=== PATIENT | male | born 1955 | race Hispanic/Latino ===

== ENCOUNTER 2019-04-28 16:40 | Inpatient (IN) | payer OTHER ==
[2019-04-28] MEDS ORDERED: NITRO-BID 2% TP ONE (16:42)
[2019-04-28] MEDS ORDERED: SUBLIMAZE IV ONE (16:43)
[2019-04-28] MEDS ORDERED: ZOFRAN IV ONE (16:43)
[2019-04-28] MEDS ORDERED: HEPARIN 10,000 UNITS/10 ML IV ONE (16:45)
[2019-04-28] MEDS ORDERED: CALAN ONE ×2 (16:50→20:46)
[2019-04-28] MEDS ORDERED: XYLOCAINE 2% INFILTRATI ONE ×2 (16:50→19:06)
[2019-04-28] MEDS ORDERED: HEPARIN/NS 5000 UNIT/500ML(CATH LAB) 1,000 ML IR ONE (16:50)
[2019-04-28] MEDS ORDERED: NITROGLYCERIN SYRINGE 3 ML ONE (16:51)
[2019-04-28] MEDS ORDERED: VERSED ONE (16:51)
[2019-04-28] MEDS ORDERED: SUBLIMAZE ONE (16:51)
[2019-04-28] MEDS ORDERED: NACL 0.9% 1000 ML 1,000 ML IV ONE ×2 (16:51)
[2019-04-28] MEDS ORDERED: HEPARIN 10,000 UNITS/10 ML ONE (16:52)
[2019-04-28] MEDS ORDERED: PLAVIX PO ONE (16:55)
--- NOTE | 2019-04-28 16:55 | Emergency Department Report ---
HPI - General Time Seen by Provider: 04/28/19 16:42 - HPI HPI: Room 22 The patient is 63-year-old male presenting with a chief complaint of chest pain. Per EMS just prior to arrival the patient was engaged in sexual intercourse when he developed substernal chest pain described as a burning in nature associated with shortness of breath nausea/vomiting and diaphoresis. EMS EKG was in to the ED prior to the patient's arrival and a code STEMI was called. EMS EKG transmitted to interventionalist prior to arrival. Patient gives his chest pain a score of 8/10 Location: Chest, see above Duration: [See above] Quality: Burning Severity: 8/10 Modifying factors: [see above] Context: [see above] Mode of transportation: [not driving] ED Past Medical Hx - Past Medical History Previous Medical History?: No - Surgical History Past Surgical History?: No - Family History Family history: no significant - Social History Smoking Status: Never Smoker Substance Use Type: None ED Review of Systems ROS: Stated complaint: STEMI Other details as noted in HPI Constitutional: diaphoresis Eyes: denies: eye pain ENT: denies: throat pain Respiratory: shortness of breath Cardiovascular: chest pain Endocrine: no symptoms reported Gastrointestinal: nausea Genitourinary: denies: dysuria Musculoskeletal: denies: back pain Neurological: denies: headache Physical Exam - Physical Exam Physical Exam: GENERAL: The patient is well-developed well-nourished male lying on stretcher appearing to be in moderate discomfort. [] HEENT: Normocephalic. Atraumatic. Extraocular motions are intact. Patient has moist mucous membranes. NECK: Supple. Trachea midline CHEST/LUNGS: Clear to auscultation. There is no respiratory distress noted. HEART/CARDIOVASCULAR: Regular. There is no tachycardia. There is no gallop rub or murmur. ABDOMEN: Abdomen is soft, nontender. Patient has normal bowel sounds. There is no abdominal distention. SKIN: There is no rash. There is no edema. There is diaphoresis. NEURO: The patient is awake, alert, and oriented. The patient is cooperative. The patient has normal speech MUSCULOSKELETAL: There is no evidence of acute injury. ED Course - Consultations Consultation #1: 04/28/19 16:35 EMS EKG transmitted to sports marketing internship (Dr Palomo) and a code STEMI called Consultation #2: 04/28/19 16:[address] Palomo- recommends giving Plavix 600 mg by mouth 04/28/19 16:58 Patient has already been transported to the assistant laboratory director. Transporting nurse instructed to inform The patient has not received Plavix 600 mg in ED Consultation #3: 04/28/19 16:59 Hospitalist notified (Dr Barroso) ED Medical Decision Making - EKG Data -: EKG Interpreted by Me EKG shows normal: sinus rhythm Rate: normal - EKG Data When compared to previous EKG there are: previous EKG unavailable Interpretation: acute IL (acute inferior IL) - Differential Diagnosis STEMI Critical care attestation.: If time is entered above; I have spent that time in minutes in the direct care of this critically ill patient, excluding procedure time. ED Disposition Clinical Impression: STEMI (ST elevation myocardial infarction), Chest pain Disposition: 09 OP ADMIT IP TO THIS HOSP Is pt being admited?: Yes Does the pt Need Aspirin: Yes Condition: Serious Instructions: Chest Pain (ED) Time of Disposition: 16:59 (hospitalist notified (Dr Barroso))
[2019-04-28 17:00] VITALS: BP 126/77
[2019-04-28] MEDS ORDERED: DILAUDID IV PRN (17:28)
[2019-04-28] MEDS ORDERED: ZOFRAN IV PRN (17:28)
[2019-04-28] MEDS ORDERED: SODIUM CHLORIDE FLUSH SYRINGE 10 ML IV PRN (17:28)
[2019-04-28] MEDS ORDERED: AMBIEN PO PRN (17:28)
[2019-04-28] MEDS ORDERED: PERCOCET 5/325 PO PRN (17:28)
[2019-04-28] MEDS: HEPARIN 10,000 UNITS/10 ML ONE ×2 (17:33→17:36)
[2019-04-28] MEDS ORDERED: PHENYLEPHRINE/NS Syringe 1,000 MCG/10 ML IV ONE (17:54)
[2019-04-28] MEDS ORDERED: ADRENALIN ONE (17:54)
[2019-04-28] MEDS ORDERED: ATROPINE 0.1% (CARDIAC) ONE ×2 (17:54)
[2019-04-28] MEDS ORDERED: XYLOCAINE CARDIAC IV ONE (17:54)
[2019-04-28] MEDS ORDERED: D5NS 1,000 ML IV SCH (18:00)
[2019-04-28] MEDS ORDERED: LOVENOX SUB-Q SCH (18:00)
[2019-04-28] MEDS ORDERED: ASPIRIN PO SCH (18:00)
[2019-04-28] MEDS: INTROPIN DRIP 800 MG/D5W 250 ML 800 MG/250 ML BAG IV ONE ×2 (18:05→18:10)
[2019-04-28] MEDS ORDERED: ZOFRAN ONE (18:07)
[2019-04-28] MEDS ORDERED: HEPARIN/ 0.45% NACL-25,000 UNIT/500 ML 25,000 UNIT/500 ML BAG ONE (18:09)
[2019-04-28 18:34] LABS: Basophils % (Auto) 0.5 % (0.0-1.8); Eosinophils # (Auto) 0.1 K/mm3 (0.0-0.4); Eosinophils % (Auto) 1.6 % (0.0-4.3); Hematocrit 41.5 % (35.5-45.6); Lymphocytes # (Auto) 1.8 K/mm3 (1.2-5.4); Lymphocytes % (Auto) 23.4 % (13.4-35.0); Mean Corpuscular HGB Conc 34 % (32-34); Mean Corpuscular Volume 95 fl (84-94); Monocytes # (Auto) 0.5 K/mm3 (0.0-0.8); Monocytes % (Auto) 6.4 % (0.0-7.3); Platelet Count 178 K/mm3 (140-440); Red Blood Count 4.38 M/mm3 (3.65-5.03); Red Cell Distribution Width 13.7 % (13.2-15.2)
[2019-04-28] MEDS ORDERED: LEVOPHED IV ONE (18:36)
[2019-04-28] MEDS ORDERED: NACL 0.9% 250ML 250 ML ONE (18:37)
[2019-04-28 18:51] LABS: INR 1.25 (0.87-1.13)
[2019-04-28 18:52] LABS: Creatine Kinase MB 32.6 ng/mL (0.0-4.0)
[2019-04-28] MEDS ORDERED: HEPARIN/NS 5000 UNIT/500ML(CATH LAB) 500 ML IR ONE ×2 (18:52→19:06)
[2019-04-28 18:53] LABS: Alanine Aminotransferase 38 units/L (7-56); Albumin 3.6 g/dL (3.9-5); BUN/Creatinine Ratio 14; Blood Urea Nitrogen 15 mg/dL (9-20); Calcium 7.8 mg/dL (8.4-10.2); Hemolysis Index 12
--- NOTE | 2019-04-28 18:57 | Event Note ---
Date: 04/28/191747 Called to supervisor cytogenetic laboratory for hemodynamic instability prior to insertion of IABP. Changed him from NC to 100% NRB; ventilation/oxygenation stable. 1811 Called to supervisor cytogenetic laboratory-[facility]. Pt with STEMI vomited, possible aspiration, on IABP. Pt was awake, alert, and oriented. Tool Room Supervisor requested we intubate the patient. 1827 Etomidate 20mg + Jayne 100mg DL x 1 DVC 8.0 OETT. +BBS and +ETCO2 Pt placed on vent Lucho Aguero, MILAD and I were present.
[2019-04-28] MEDS ORDERED: LEVAQUIN 500MG/100ML 500 MG/100 ML BAG IV ONE (19:07)
[2019-04-28 19:11] LABS: Chol/HDL Ratio 3.72 %; HDL Cholesterol 33 mg/dL (40-59); LDL Cholesterol,Direct 92 mg/dL (50-130); Partial Thromboplastin Time > 240.0 Sec. (24.2-36.6)
[2019-04-28] MEDS ORDERED: NACL 0.9% 1000 ML 1,000 ML ONE (19:18)
[2019-04-28] MEDS ORDERED: AMIDATE IV ONE (19:20)
[2019-04-28] MEDS ORDERED: CORDARONE IV ONE (19:34)
[2019-04-28] MEDS ORDERED: D5W 100 ML IV ONE (19:34)
[2019-04-28] MEDS ORDERED: VERSED IV ONE (19:48)
[2019-04-28] MEDS ORDERED: NACL 0.9% 100 ML ONE (20:45)
[2019-04-28] MEDS ORDERED: SODIUM CHLORIDE FLUSH SYRINGE 10 ML IV SCH (22:00)
--- NOTE | 2019-04-28 22:22 | Cardiac Catherization Report ---
CARDIAC CATHETERIZATION AND CORONARY ANGIOPLASTY REPORT REASON FOR PROCEDURE: Acute inferior wall ST elevation myocardial infarction. INDICATIONS: The patient is a 63-year-old man who presented with chest pain and inferior ST elevation myocardial infarction on the ECG. Emergency cardiac catheterization protocol was activated. DESCRIPTION OF PROCEDURE: The patient was prepped and draped in a sterile fashion under emergency protocol. We entered the right femoral artery using Seldinger technique followed by placement of a 6-Fijian sheath. Selective left and right coronary angiography was performed using a #4 left Brittani and a #4 right Brittani. The right Brittani was used for left ventricle angiography. The angiograms were reviewed. CORONARY ANGIOGRAPHY: The left main coronary artery was free of significant disease. Left anterior descending artery contained diffuse moderate atherosclerosis. The circumflex artery was free of significant disease. Right coronary artery was a dominant vessel, that was occluded in its mid segment. This was the infarct related lesion. CORONARY ANGIOPLASTY: We proceeded with primary angioplasty, a 0.014-inch Lap Cutter Truer Operator 50 guidewire was introduced, penetrating the occluded vessel. Predilatation angioplasty was performed using a 3.0 balloon catheter. Following that, serial, 3.5 mm drug-eluting stents were deployed. Following stenting, there was residual deficit due to intravascular calcium. We then proceeded with post-dilatation angioplasty. Following post-dilatation, there was evidence of extravasation of contrast outside the coronary vasculature, suggesting perforation. CORONARY CONTRAST EXTRAVASATION: We immediately then deployed serial, 3.5-4.0 mm Xomed Graftmaster covered stents. The stents were deployed to optimal pressures. Following deployment, there was no evidence of contrast extravasation. Due to persistent blood pressure, hypotension, the patient was placed on intravenous dopamine and fluids, and balloon pump was recommended. Intraaortic balloon pump counterpulsation. The patient was then treated with a balloon pump, which established 1:1 counterpulsation. At the conclusion of the procedure, there was reestablishment of flow down the right coronary artery, the patient was awake and alert, chest pain free, but continued to be hypotensive. The patient will be planned for emergency transfer to a tertiary care center, we will recommend a stat echocardiogram to assess for pericardial effusion CONCLUSION: 1. Acute inferior ST elevation myocardial infarction. 2. Successful angioplasty and stenting of the right coronary artery. 3. Procedure complicated by contrast extravasation, requiring Graftmaster covered stents. The patient's condition is guarded. JOB# [id number] SARAH/SWATI
== END 2019-04-28 20:30 | disposition short-term general hospital (02) | DRG 272 ==
LOC: ED 16:40 → CC1 17:29
PROVIDERS: ADMIT Internal Medicine; ATTEND Internal Medicine
PROC: 4A023N7 Measurement of Cardiac Sampling and Pressure, Left Heart, Percutaneous Approach (ICD-10-PCS; principal; 2019-04-28)
PROC: 5A02210 Assistance with Cardiac Output using Balloon Pump, Continuous (ICD-10-PCS; 2019-04-28)
PROC: 02703EZ Dilation of Coronary Artery, One Artery with Two Intraluminal Devices, Percutaneous Approach (ICD-10-PCS; 2019-04-28)
PROC: B2111ZZ Fluoroscopy of Multiple Coronary Arteries using Low Osmolar Contrast (ICD-10-PCS; 2019-04-28)
PROC: B2151ZZ Fluoroscopy of Left Heart using Low Osmolar Contrast (ICD-10-PCS; 2019-04-28)
PROC: 027036Z Dilation of Coronary Artery, One Artery with Three Drug-eluting Intraluminal Devices, Percutaneous Approach (ICD-10-PCS; 2019-04-28)
DX: I21.19 ST elevation (STEMI) myocardial infarction involving other coronary artery of inferior wall (principal)
CPT/HCPCS: 33210; 33967; 36415; 80053; 80061; 82550; 82553; 82962; 83735; 83880; 84484; 85025; 85347; 85610; 85730; 86850; 86900; 86901; 92941; 93005; 93010; 93458; 94002; 96374; 96375; G0378; C1725; C1769; C1874; C1887; C1894; C9606; J0171; J0282; J0461; J1265; J1644; J1956; J2001; J2250; J2370; J2405; J3010; J7030; J7050; Q9967